=== PATIENT | female | born 1990 | race Hispanic/Latino ===

== ENCOUNTER 2024-05-25 06:44 | Day surgery (SDC) | payer MEDICAID ==
[2024-05-21 14:59] VITALS: BP 122/68; PULSE 70; RESP 18
[2024-05-21 15:07] LABS: BASOPHILS # (AUTO) 0.04 K/uL (0.00-0.20); BASOPHILS % (AUTO) 0.6 % (0.0-5.0); EOSINOPHILS # (AUTO) 0.18 K/uL (0.00-0.70); EOSINOPHILS % (AUTO) 2.7 % (0.0-8.0); HEMATOCRIT 36.7 % (36-48); IMMATURE GRANULOCYTE ABSOLUTE 0.02 K/uL (0-1); LYMPHOCYTES # (AUTO) 2.6 K/uL (1.0-4.8); LYMPHOCYTES % (AUTO) 38.9 % (21.0-51.0); MEAN CORPUSCULAR HEMOGLOBIN 29.6 pg (27.0-33.0); MEAN CORPUSCULAR HGB CONC 33.5 g/dL (32.0-36.0); MEAN CORPUSCULAR VOLUME 88.4 fL (79-99); MONOCYTES # (AUTO) 0.3 K/uL (0.1-1.0); MONOCYTES % (AUTO) 4.7 % (3.0-13.0); NEUTROPHILS # (AUTO) 3.5 K/uL (1.8-7.7); NEUTROPHILS % (AUTO) 52.8 % (40.0-77.0); PLATELET COUNT (AUTO) 217 K/uL (130-400); RED BLOOD CELL COUNT(AUTO) 4.15 MIL/uL (4.00-5.50); WHITE BLOOD COUNT (AUTO) 6.6 K/uL (4.8-10.8)
[2024-05-21 15:20] LABS: CREATININE 0.6 mg/dL (0.5-1.0); POTASSIUM 3.6 mmol/L (3.5-5.1)
[2024-05-25] VITALS (17 sets, daily range): BP systolic 110–142; BP diastolic 65–87; PULSE 59–78; RESP 14–21
[~2024-05-25] VITALS: Ht 149.9 cm; Wt 74.6 kg
[2024-05-25] MEDS: LACTATED RINGERS 1000ML 1,000 ML IV ONE
[~2024-05-25 06:44] MED LIST: CETI10CA5 PO; prenatal PO
[2024-05-25] MEDS ORDERED: FAMOTIDINE 20MG VIAL IV ONE (07:32)
[2024-05-25] MEDS ORDERED: HYDROMORPHONE 1 MG INJ ONE (07:32)
[2024-05-25] MEDS ORDERED: BUPIVACAINE/PF 0.25% 30ML VIAL IJ ONE (07:38)
[2024-05-25] MEDS ORDERED: PHENYLEPHRINE HCL 10 MG/ML 1ML VIAL IV ONE (07:40)
[2024-05-25] MEDS ORDERED: LIDOCAINE PF 100MG/5ML (2%) SYRINGE 5ML ONE (07:40)
[2024-05-25] MEDS ORDERED: NEOSTIGMINE METHYLSULFATE 1MG/ML IV ONE (07:40)
[2024-05-25] MEDS ORDERED: ROCURONIUM BROMIDE 10MG/1ML 5ML VL ONE (07:40)
[2024-05-25] MEDS ORDERED: GLYCOPYRROLATE 0.2 MG/ML 5 ML VIAL ONE (07:40)
[2024-05-25] MEDS ORDERED: PROPOFOL 10 MG/ML 20ML VIAL IV ONE (07:40)
[2024-05-25] MEDS ORDERED: ONDANSETRON 4MG INJ ONE (07:40)
[2024-05-25] MEDS ORDERED: FENTANYL CITRATE PF 50 MCG/1 ML 2ML VIAL ONE (07:41)
[2024-05-25] MEDS ORDERED: MIDAZOLAM HCL 1 MG/ML 2ML VIAL ONE (07:49)
[2024-05-25] MEDS: INDOCYANINE GREEN 25 MG VIAL IJ ONE (08:00)
[2024-05-25] MEDS: CEFAZOLIN SODIUM 2 GM VIAL ONE (08:35)
[2024-05-25] MEDS: BUPIVACAINE/PF 0.25% 30ML VIAL IJ ONE (08:45)
[2024-05-25] MEDS: FENTANYL CITRATE PF 50 MCG/1 ML 2ML VIAL ONE (09:54)
[2024-05-25] MEDS: MEPERIDINE-PF 25 MG/ML SYG ONE (10:04)
== END 2024-05-25 11:35 | disposition home or self-care (01) ==
LOC: DAH 06:44
PROVIDERS: ATTEND Surgery
DX: K80.10 Calculus of gallbladder with chronic cholecystitis without obstruction (principal); E78.5 Hyperlipidemia, unspecified; D64.9 Anemia, unspecified; J31.0 Chronic rhinitis; K21.9 Gastro-esophageal reflux disease without esophagitis; Z83.3 Family history of diabetes mellitus; Z82.49 Family history of ischemic heart disease and other diseases of the circulatory system; Z79.899 Other long term (current) drug therapy; Z98.891 History of uterine scar from previous surgery
CPT/HCPCS: 47562; 64486; S2900; 36415; 80048; 81025; 84703; 85025; 88304; J1170; J2001; J2175; J2250; J2371; J2405; J2704; J2710; J3010; J3490; J7120; A4213; A4215; A4221; A4222; A4223; A4600; A4649; A4663; A4930; A6260; C1769; J0665; J0690